=== PATIENT | male | born 1975 | race Caucasian/White ===

== ENCOUNTER 2019-07-21 00:39 | Emergency (ER) | payer BC ==
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
[2019-07-21] MEDS ORDERED: HYDROCODONE/APAP 10/325 TAB ONE (02:57)
[2019-07-21 03:07] VITALS: BP 157/88; TEMP 98.2; O2SAT 100
== END 2019-07-21 02:59 | disposition home or self-care (01) ==
LOC: ER 00:39
DX: T23.202A Burn of second degree of left hand, unspecified site, initial encounter (principal); T23.102A Burn of first degree of left hand, unspecified site, initial encounter
CPT/HCPCS: 99283